=== PATIENT | female | born 1930 | race Caucasian/White ===

== ENCOUNTER 2019-08-17 18:57 | Inpatient (IN) ==
[2019-08-17] MEDS ORDERED: hydrALAZINE 20 MG/1 ML VIAL IV PRN (20:59)
[2019-08-17] MEDS ORDERED: ZALEPLON 5 MG CAPSULE PO PRN (21:01)
[2019-08-17] MEDS ORDERED: ACETAMINOPHEN 325 MG TABLET PO PRN (21:01)
[2019-08-17] MEDS ORDERED: MORPHINE 4 MG/1 ML VIAL IV PRN (21:01)
[2019-08-17] MEDS ORDERED: guaiFENesin/DM ER 600-30 MG TABLET PO PRN (21:01)
[2019-08-17] MEDS ORDERED: ONDANSETRON 4 MG/2 ML VIAL IV PRN (21:01)
[2019-08-17] MEDS ORDERED: DILTIAZEM 50 MG/10 ML VIAL IV ONE (21:36)
[2019-08-17 22:20] LABS: Calcium 8.8 MG/DL (8.5-10.1); Osmolality,Calculated 282.3 MOS/KG (273-304)
[2019-08-17 22:42] LABS: Basophils % 0.9 % (0.0-0.8); Eosinophils # 0.1 10*3/uL (0.0-0.87); Hematocrit 23.5 VOL% (35.7-47.0); Hemoglobin 6.6 GM/DL (12.0-16.0); Immature Granulocytes % 0.4 %; Immature Granulocytes Absolute 0.02 #; Lymphocytes # 0.9 10*3/uL (1.4-4.0); Lymphocytes % 19.7 % (21.3-54.2); Mean Corpuscular HGB Conc 28.1 GM/DL (32-36); Mean Corpuscular Volume 64.9 FL (87-102); Mean Platelet Volume 9.9 FL (9.6-12.0); Monocytes % 12.6 % (1.7-12.7); NRBC # 0.02 10*3/uL; Neutrophils % 64.4 % (38.7-73.9); Platelet Count 330 T/CUMM (130-400); Red Blood Count 3.62 MC/CUMM (3.8-5.5); Red Cell Distribution Width 18.6 % (9.3-17.3); White Blood Count 4.5 T/CUMM (4-12)
[2019-08-17 22:52] LABS: Folate 6.1 NG/ML (5.4-24.0); Vitamin B12 551 PG/ML (211-911)
[2019-08-17] MEDS ORDERED: FUROSEMIDE 40 MG/4 ML VIAL IV ONE (23:00)
[2019-08-17] MEDS ORDERED: SODIUM CHLORIDE 0.9% 1,000 ML IV PRN (23:07)
[2019-08-17] MEDS: METOPROLOL TARTRATE 25 MG TABLET PO SCH (23:34)
[2019-08-17] MEDS: cefTRIAXone 1,000 MG in SYRINGE 1 EACH IV SCH (23:35)
[2019-08-17] MEDS: AZITHROMYCIN INJ 500 MG in SODIUM CHLORIDE 0.9% 250 ML IV SCH (23:53)
[2019-08-17 23:54] LABS: Sedimentation Rate-Westergren 25 MM/HR (0-30)
[2019-08-18] MEDS ORDERED: METOPROLOL TARTRATE 5 MG/5 ML VIAL IV SCH
[2019-08-18 08:18] LABS: Basophils % 0.5 % (0.0-0.8); Eosinophils # 0.1 10*3/uL (0.0-0.87); Eosinophils % 1.2 % (0.00-10.9); Hematocrit 30.9 VOL% (35.7-47.0); Immature Granulocytes % 0.3 %; Immature Granulocytes Absolute 0.02 #; Lymphocytes # 0.7 10*3/uL (1.4-4.0); Lymphocytes % 11.9 % (21.3-54.2); Mean Corpuscular HGB Conc 29.8 GM/DL (32-36); Mean Corpuscular Volume 71.4 FL (87-102); Mean Platelet Volume 9.1 FL (9.6-12.0); Monocytes % 9.6 % (1.7-12.7); Neutrophils % 76.5 % (38.7-73.9); Platelet Count 271 T/CUMM (130-400); Red Blood Count 4.33 MC/CUMM (3.8-5.5); Red Cell Distribution Width 22.9 % (9.3-17.3); White Blood Count 5.7 T/CUMM (4-12)
[2019-08-18 08:24] LABS: Hemoglobin 9.2 GM/DL (12.0-16.0)
[2019-08-18 08:49] LABS: Hypochromasia 1+
[2019-08-18 08:50] LABS: Platelet Estimate Adequate
[2019-08-18 08:53] LABS: Calcium 8.8 MG/DL (8.5-10.1); Osmolality,Calculated 278.5 MOS/KG (273-304)
[2019-08-18] MEDS: PANTOPRAZOLE 40 MG TABLET PO SCH (09:16)
[2019-08-18] MEDS: METOPROLOL TARTRATE 25 MG TABLET PO SCH ×2 (09:16→20:00)
[2019-08-18] MEDS: FUROSEMIDE 40 MG/4 ML VIAL IV SCH ×2 (09:16→15:25)
[2019-08-18] MEDS: LACTULOSE 20 GM/30 ML UDCUP PO PRN (09:19)
[2019-08-18 10:10] LABS: % Iron Saturation 19.7 % (18-50); Ferritin 19.5 ng/ml (8-252)
[2019-08-18] MEDS: POTASSIUM CHLORIDE 20 MEQ TABLET PO PRN ×4 (13:16→23:06)
[2019-08-18] MEDS: FERROUS SULFATE 325 MG TABLET PO SCH ×2 (13:17→20:01)
[2019-08-18] MEDS: AZITHROMYCIN INJ 500 MG in SODIUM CHLORIDE 0.9% 250 ML IV SCH (23:05)
[2019-08-18] MEDS: cefTRIAXone 1,000 MG in SYRINGE 1 EACH IV SCH (23:06)
[2019-08-19] MEDS ORDERED: ZIPRASIDONE 20 MG/1 ML VIAL IM PRN (00:58)
[2019-08-19 07:33] LABS: Basophils % 0.7 % (0.0-0.8); Eosinophils # 0.1 10*3/uL (0.0-0.87); Eosinophils % 1.5 % (0.00-10.9); Hematocrit 32.8 VOL% (35.7-47.0); Hemoglobin 9.7 GM/DL (12.0-16.0); Immature Granulocytes % 0.3 %; Immature Granulocytes Absolute 0.02 #; Lymphocytes # 0.8 10*3/uL (1.4-4.0); Lymphocytes % 12.2 % (21.3-54.2); Mean Corpuscular HGB Conc 29.6 GM/DL (32-36); Mean Corpuscular Volume 72.1 FL (87-102); Mean Platelet Volume 9.8 FL (9.6-12.0); Monocytes % 14.7 % (1.7-12.7); Neutrophils % 70.6 % (38.7-73.9); Platelet Count 287 T/CUMM (130-400); Red Blood Count 4.55 MC/CUMM (3.8-5.5); Red Cell Distribution Width 23.4 % (9.3-17.3); White Blood Count 6.1 T/CUMM (4-12)
[2019-08-19 07:51] LABS: Hypochromasia 2+; Platelet Estimate Adequate
[2019-08-19 07:55] LABS: Osmolality,Calculated 281.3 MOS/KG (273-304)
[2019-08-19] MEDS: METOPROLOL TARTRATE 25 MG TABLET PO SCH ×2 (08:47→21:56)
[2019-08-19] MEDS: PANTOPRAZOLE 40 MG TABLET PO SCH (08:47)
[2019-08-19] MEDS: FUROSEMIDE 40 MG/4 ML VIAL IV SCH (08:47)
[2019-08-19] MEDS: FERROUS SULFATE 325 MG TABLET PO SCH ×2 (08:47→21:55)
[2019-08-19 09:30] LABS: Hemoglobin A1 (Alkaline) 97.3 % (96.5-98.5); Hemoglobin A2 (Alkaline) 2.7 % (1.5-3.5)
[2019-08-19] MEDS ORDERED: TUBERCULIN SKIN TEST 0.1 ML SYRINGE INTRADERM ONE (12:29)
[2019-08-20] MEDS: cefTRIAXone 1,000 MG in SYRINGE 1 EACH IV SCH (01:00)
[2019-08-20] MEDS: AZITHROMYCIN INJ 500 MG in SODIUM CHLORIDE 0.9% 250 ML IV SCH (01:21)
[2019-08-20 04:43] LABS: Basophils # 0.1 10*3/uL (0.0-0.2); Basophils % 0.8 % (0.0-0.8); Eosinophils # 0.2 10*3/uL (0.0-0.87); Eosinophils % 2.4 % (0.00-10.9); Hematocrit 31.9 VOL% (35.7-47.0); Hemoglobin 9.3 GM/DL (12.0-16.0); Immature Granulocytes % 0.3 %; Immature Granulocytes Absolute 0.02 #; Lymphocytes % 15.7 % (21.3-54.2); Mean Corpuscular HGB Conc 29.2 GM/DL (32-36); Mean Corpuscular Volume 71.8 FL (87-102); Mean Platelet Volume 9.7 FL (9.6-12.0); Neutrophils % 68.8 % (38.7-73.9); Platelet Count 272 T/CUMM (130-400); Red Blood Count 4.44 MC/CUMM (3.8-5.5); Red Cell Distribution Width 24.6 % (9.3-17.3); White Blood Count 6.3 T/CUMM (4-12)
[2019-08-20 05:10] LABS: Hypochromasia 1+; Ovalocytes Slight; Platelet Estimate Adequate
[2019-08-20] MEDS: FUROSEMIDE 40 MG/4 ML VIAL IV SCH ×2 (08:54→16:02)
[2019-08-20] MEDS: FERROUS SULFATE 325 MG TABLET PO SCH ×2 (08:55→22:43)
[2019-08-20] MEDS: PANTOPRAZOLE 40 MG TABLET PO SCH (08:55)
[2019-08-20] MEDS: METOPROLOL TARTRATE 25 MG TABLET PO SCH ×2 (08:55→22:43)
[2019-08-21] MEDS: cefTRIAXone 1,000 MG in SYRINGE 1 EACH IV SCH (00:08)
[2019-08-21] MEDS: AZITHROMYCIN INJ 500 MG in SODIUM CHLORIDE 0.9% 250 ML IV SCH (00:30)
[2019-08-21] MEDS: METOPROLOL TARTRATE 25 MG TABLET PO SCH ×2 (09:20→20:27)
[2019-08-21] MEDS: PANTOPRAZOLE 40 MG TABLET PO SCH (09:25)
[2019-08-21] MEDS: FERROUS SULFATE 325 MG TABLET PO SCH ×2 (09:25→20:27)
[2019-08-21] MEDS: FUROSEMIDE 40 MG/4 ML VIAL IV SCH (09:25)
[2019-08-21 11:00] LABS: Calcium 8.7 MG/DL (8.5-10.1); Osmolality,Calculated 277.5 MOS/KG (273-304)
[2019-08-22 05:12] LABS: Calcium 8.9 MG/DL (8.5-10.1); Osmolality,Calculated 281.3 MOS/KG (273-304)
[2019-08-22 06:00] LABS: Basophils # 0.1 10*3/uL (0.0-0.2); Eosinophils # 0.2 10*3/uL (0.0-0.87); Eosinophils % 3.6 % (0.00-10.9); Immature Granulocytes % 0.6 %; Immature Granulocytes Absolute 0.03 #; Lymphocytes % 20.1 % (21.3-54.2); Mean Corpuscular HGB Conc 29.1 GM/DL (32-36); Mean Corpuscular Volume 74.6 FL (87-102); Mean Platelet Volume 10.3 FL (9.6-12.0); Monocytes % 12.6 % (1.7-12.7); Neutrophils % 62.1 % (38.7-73.9); Platelet Count 266 T/CUMM (130-400); Red Blood Count 4.29 MC/CUMM (3.8-5.5); Red Cell Distribution Width 26.2 % (9.3-17.3); White Blood Count 4.8 T/CUMM (4-12)
[2019-08-22 06:01] LABS: Hemoglobin 9.3 GM/DL (12.0-16.0)
[2019-08-22 06:07] LABS: Elliptocytes 1+; Hypochromasia 2+; Ovalocytes 1+; Platelet Estimate Normal; Poikilocytosis 1+; Target Cells Few
[2019-08-22 06:08] LABS: Anisocytosis 1+; Microcytosis 1+; Tear Drop Cells Few
[2019-08-22] MEDS: METOPROLOL TARTRATE 25 MG TABLET PO SCH ×2 (08:37→21:42)
[2019-08-22] MEDS: FERROUS SULFATE 325 MG TABLET PO SCH ×2 (08:37→21:43)
[2019-08-22] MEDS: PANTOPRAZOLE 40 MG TABLET PO SCH (08:37)
[2019-08-23 06:17] LABS: Basophils % 0.8 % (0.0-0.8); Eosinophils # 0.1 10*3/uL (0.0-0.87); Eosinophils % 2.3 % (0.00-10.9); Hematocrit 30.4 VOL% (35.7-47.0); Hemoglobin 8.8 GM/DL (12.0-16.0); Immature Granulocytes % 0.4 %; Immature Granulocytes Absolute 0.02 #; Lymphocytes # 0.9 10*3/uL (1.4-4.0); Lymphocytes % 18.4 % (21.3-54.2); Mean Corpuscular HGB Conc 28.9 GM/DL (32-36); Mean Corpuscular Volume 74.3 FL (87-102); Mean Platelet Volume 10.5 FL (9.6-12.0); Monocytes % 12.1 % (1.7-12.7); Platelet Count 242 T/CUMM (130-400); Red Blood Count 4.09 MC/CUMM (3.8-5.5); Red Cell Distribution Width 26.5 % (9.3-17.3); White Blood Count 4.8 T/CUMM (4-12)
[2019-08-23 06:42] LABS: Calcium 8.9 MG/DL (8.5-10.1); Osmolality,Calculated 283.1 MOS/KG (273-304)
[2019-08-23 07:31] LABS: Hypochromasia 2+
[2019-08-23 07:32] LABS: Microcytosis 2+; Ovalocytes Few; Spherocytes Slight
[2019-08-23 07:33] LABS: Platelet Estimate Normal
[2019-08-23] MEDS: PANTOPRAZOLE 40 MG TABLET PO SCH (08:33)
[2019-08-23] MEDS: FERROUS SULFATE 325 MG TABLET PO SCH (08:33)
[2019-08-23] MEDS: METOPROLOL TARTRATE 25 MG TABLET PO SCH (08:33)
[2019-08-23] MEDS: LACTULOSE 20 GM/30 ML UDCUP PO PRN (08:38)
[2019-08-23 12:28] VITALS: BP 125/61
== END 2019-08-23 14:18 | DRG 812 ==
LOC: N.TELES 20:05 → SUATTDRO 20:05
PROVIDERS: ADMIT Internal Medicine; ATTEND Internal Medicine

== ENCOUNTER 2020-05-18 15:38 | Inpatient (IN) ==
[2020-05-18] MEDS ORDERED: SODIUM CHLORIDE 0.9% 1,000 ML IV STA (16:27)
[2020-05-18 17:03] LABS: Basophils % 0.1 % (0.0-0.8); Eosinophils % 0.2 % (0.00-10.9); Hematocrit 32.7 VOL% (35.7-47.0); Immature Granulocytes % 0.8 %; Immature Granulocytes Absolute 0.12 #; Lymphocytes # 0.8 10*3/uL (1.4-4.0); Lymphocytes % 5.2 % (21.3-54.2); Mean Corpuscular HGB Conc 30.6 GM/DL (32-36); Mean Platelet Volume 10.9 FL (9.6-12.0); Monocytes % 8.6 % (1.7-12.7); Neutrophils % 85.1 % (38.7-73.9); Platelet Count 412 T/CUMM (130-400); Red Blood Count 4.09 MC/CUMM (3.8-5.5); Red Cell Distribution Width 18.5 % (9.3-17.3); White Blood Count 14.5 T/CUMM (4-12)
[2020-05-18 17:23] LABS: Albumin 2.4 G/DL (3.4-5.0); Bilirubin,Total 0.8 MG/DL (0.2-1.0); Calcium 10.1 MG/DL (8.5-10.1); Osmolality,Calculated 326.4 MOS/KG (273-304); Total Protein 6.2 G/DL (6.4-8.3)
[2020-05-18 17:24] LABS: Troponin I < 0.015 NG/ML (0.00-0.045)
[2020-05-18 17:39] LABS: INR 1.2; Partial Thromboplastin Time 25.7 SECS (23.9-33.8)
[2020-05-18 18:14] LABS: Apearance,Urine CLOUDY (Clear); Bacteria,Urine Occasional /HPF (Few); Bilirubin,Urine Negative (Negative); Blood, Urine Negative (Negative); Glucose,Urine (UA) Negative (Negative); Hyaline Casts,Urine 21 /LPF (0-3); Ketones,Urine Negative (Negative); Mucus,Urine Occasional /LPF (Occasional); Nitrite,Urine Negative (Negative); Protein,Urine 30 MG/DL; Squamous Epithelial Cell,Urine Occasional /HPF (0-10); Urine Color Yellow (Yellow); Urine Specific Gravity 1.017 (1.001-1.035); Urine Urobilinogen < 2.0 EU/DL (0.2-1.0); WBC,Urine 1 /HPF (0-6)
[2020-05-18] MEDS ORDERED: GLUCAGON 1 MG VIAL IM PRN (18:36)
[2020-05-18] MEDS ORDERED: DEXTROSE 50% 25 GM/50 ML VIAL IV PRN (18:36)
[2020-05-18] MEDS ORDERED: ENOXAPARIN 30 MG/0.3 ML SYRINGE SUBCUT SCH (21:00)
[2020-05-18] MEDS: FERROUS SULFATE 325 MG TABLET PO SCH (22:25)
[2020-05-18] MEDS: GABAPENTIN 100 MG CAPSULE PO SCH (22:25)
[2020-05-18] MEDS: DEXTROSE 5% 1,000 ML IV SCH (22:25)
[2020-05-18] MEDS: METOPROLOL TARTRATE 25 MG TABLET PO SCH (22:25)
[2020-05-19 04:41] LABS: Basophils % 0.2 % (0.0-0.8); Eosinophils # 0.1 10*3/uL (0.0-0.87); Eosinophils % 0.8 % (0.00-10.9); Hemoglobin 9.4 GM/DL (12.0-16.0); Immature Granulocytes % 0.8 %; Immature Granulocytes Absolute 0.09 #; Lymphocytes # 0.9 10*3/uL (1.4-4.0); Lymphocytes % 7.2 % (21.3-54.2); Mean Corpuscular HGB Conc 30.3 GM/DL (32-36); Mean Corpuscular Volume 79.5 FL (87-102); Mean Platelet Volume 10.5 FL (9.6-12.0); Monocytes % 8.6 % (1.7-12.7); Neutrophils % 82.4 % (38.7-73.9); Platelet Count 368 T/CUMM (130-400); Red Cell Distribution Width 18.2 % (9.3-17.3); White Blood Count 11.9 T/CUMM (4-12)
[2020-05-19 05:18] LABS: Albumin 2.1 G/DL (3.4-5.0); Bilirubin,Total 0.7 MG/DL (0.2-1.0); Calcium 10.2 MG/DL (8.5-10.1); Osmolality,Calculated 318.1 MOS/KG (273-304); Risk Ratio 15.19; Total Protein 6.6 G/DL (6.4-8.3); VLDL CHOLESTEROL 39.4 MG/DL
[2020-05-19] MEDS: POTASSIUM CHLORIDE RIDER 10 MEQ in PREMIX 1 EACH IV PRN ×5 (05:35→12:18)
[2020-05-19] MEDS: DEXTROSE 5% 1,000 ML IV SCH ×4 (07:12→18:02)
[2020-05-19] MEDS: METOPROLOL TARTRATE 25 MG TABLET PO SCH ×2 (10:12→21:52)
[2020-05-19] MEDS: POLYETHYLENE GLYCOL POWDER 17 GM PACK PO SCH (10:12)
[2020-05-19] MEDS: FERROUS SULFATE 325 MG TABLET PO SCH ×2 (10:12→21:52)
[2020-05-19] MEDS: PANTOPRAZOLE 40 MG TABLET PO SCH (10:13)
[2020-05-19] MEDS: GABAPENTIN 100 MG CAPSULE PO SCH ×3 (10:13→21:53)
[2020-05-19] MEDS: ASPIRIN EC 81 MG TABLET PO SCH (15:19)
[2020-05-19] MEDS ORDERED: ENOXAPARIN 60 MG/0.6 ML SYRINGE SUBCUT SCH (18:00)
[2020-05-19] MEDS: ATORVASTATIN 40 MG TABLET PO SCH (21:52)
[2020-05-19] MEDS: ENOXAPARIN 30 MG/0.3 ML SYRINGE SUBCUT SCH (21:52)
[2020-05-20] MEDS: DEXTROSE 5% 1,000 ML IV SCH ×3 (04:33→20:59)
[2020-05-20 06:12] LABS: Basophils % 0.2 % (0.0-0.8); Eosinophils # 0.1 10*3/uL (0.0-0.87); Eosinophils % 0.9 % (0.00-10.9); Hematocrit 31.1 VOL% (35.7-47.0); Hemoglobin 9.4 GM/DL (12.0-16.0); Immature Granulocytes % 0.7 %; Immature Granulocytes Absolute 0.08 #; Lymphocytes % 8.5 % (21.3-54.2); Mean Corpuscular HGB Conc 30.2 GM/DL (32-36); Mean Corpuscular Volume 79.7 FL (87-102); Monocytes % 8.3 % (1.7-12.7); Neutrophils % 81.4 % (38.7-73.9); Platelet Count 365 T/CUMM (130-400); Red Cell Distribution Width 18.4 % (9.3-17.3); White Blood Count 11.2 T/CUMM (4-12)
[2020-05-20 06:35] LABS: Osmolality,Calculated 304.1 MOS/KG (273-304)
[2020-05-20] MEDS: FERROUS SULFATE 325 MG TABLET PO SCH ×2 (09:49→21:32)
[2020-05-20] MEDS: ASPIRIN EC 81 MG TABLET PO SCH (09:49)
[2020-05-20] MEDS: METOPROLOL TARTRATE 25 MG TABLET PO SCH ×2 (09:49→21:32)
[2020-05-20] MEDS: PANTOPRAZOLE 40 MG TABLET PO SCH (09:50)
[2020-05-20] MEDS: POLYETHYLENE GLYCOL POWDER 17 GM PACK PO SCH (09:50)
[2020-05-20] MEDS: GABAPENTIN 100 MG CAPSULE PO SCH ×3 (09:50→21:32)
[2020-05-20] MEDS: ENOXAPARIN 30 MG/0.3 ML SYRINGE SUBCUT SCH (09:55)
[2020-05-20] MEDS: POTASSIUM CHLORIDE RIDER 10 MEQ in PREMIX 1 EACH IV PRN ×2 (12:49→14:22)
[2020-05-20] MEDS: ATORVASTATIN 40 MG TABLET PO SCH (21:32)
[2020-05-21 05:39] LABS: Basophils % 0.2 % (0.0-0.8); Eosinophils % 0.3 % (0.00-10.9); Hematocrit 33.5 VOL% (35.7-47.0); Hemoglobin 10.3 GM/DL (12.0-16.0); Immature Granulocytes % 1.3 %; Lymphocytes # 1.1 10*3/uL (1.4-4.0); Lymphocytes % 7.2 % (21.3-54.2); Mean Corpuscular HGB Conc 30.7 GM/DL (32-36); Mean Platelet Volume 10.7 FL (9.6-12.0); Monocytes % 8.8 % (1.7-12.7); Neutrophils % 82.2 % (38.7-73.9); Platelet Count 341 T/CUMM (130-400); Red Blood Count 4.24 MC/CUMM (3.8-5.5); Red Cell Distribution Width 18.3 % (9.3-17.3); White Blood Count 15.6 T/CUMM (4-12)
[2020-05-21] MEDS: DEXTROSE 5% 1,000 ML IV SCH (05:52)
[2020-05-21 06:04] LABS: Calcium 9.9 MG/DL (8.5-10.1); Osmolality,Calculated 282.5 MOS/KG (273-304)
[2020-05-21] MEDS: ASPIRIN EC 81 MG TABLET PO SCH (09:55)
[2020-05-21] MEDS: FERROUS SULFATE 325 MG TABLET PO SCH ×2 (09:55→20:30)
[2020-05-21] MEDS: POLYETHYLENE GLYCOL POWDER 17 GM PACK PO SCH (09:56)
[2020-05-21] MEDS: METOPROLOL TARTRATE 25 MG TABLET PO SCH ×2 (09:56→20:30)
[2020-05-21] MEDS: PANTOPRAZOLE 40 MG TABLET PO SCH (09:56)
[2020-05-21] MEDS: GABAPENTIN 100 MG CAPSULE PO SCH ×3 (09:56→20:30)
[2020-05-21] MEDS ORDERED: cefTRIAXone 1,000 MG in SYRINGE 1 EACH IV SCH (10:00)
[2020-05-21] MEDS ORDERED: AZITHROMYCIN INJ 500 MG in SODIUM CHLORIDE 0.9% 250 ML IV SCH (10:30)
[2020-05-21 10:40] LABS: Apearance,Urine CLOUDY (Clear); Bacteria,Urine Moderate /HPF (Few); Bilirubin,Urine Negative (Negative); Blood, Urine Negative (Negative); Glucose,Urine (UA) Negative (Negative); Ketones,Urine Negative (Negative); Mucus,Urine Occasional /LPF (Occasional); Nitrite,Urine Negative (Negative); Protein,Urine Negative; RBC,Urine 2 /HPF (0-4); Squamous Epithelial Cell,Urine Occasional /HPF (0-10); Uric Acid Crystals,Urine Occasional /HPF (<1); Urine Color Yellow (Yellow); Urine Specific Gravity 1.013 (1.001-1.035); Urine Urobilinogen < 2.0 EU/DL (0.2-1.0); WBC,Urine 1 /HPF (0-6)
[2020-05-21] MEDS: SODIUM CHLORIDE 0.9% 1,000 ML IV SCH ×2 (11:03→22:23)
[2020-05-21] MEDS ORDERED: MORPHINE 4 MG/1 ML VIAL IV ONE (15:34)
[2020-05-21] MEDS: ATORVASTATIN 40 MG TABLET PO SCH (20:30)
[2020-05-22] MEDS ORDERED: METOPROLOL TARTRATE 5 MG/5 ML VIAL IV ONE (03:07)
[2020-05-22] MEDS ORDERED: SODIUM CHLORIDE 0.9% 250 ML IV ONE (03:09)
[2020-05-22] MEDS ORDERED: ceFAZolin 1,000 MG in SYRINGE 1 EACH IV ONE (06:00)
[2020-05-22] MEDS: SODIUM CHLORIDE 0.9% 1,000 ML IV SCH ×2 (06:08→21:41)
[2020-05-22 07:01] LABS: Basophils % 0.2 % (0.0-0.8); Eosinophils % 0.1 % (0.00-10.9); Hematocrit 29.2 VOL% (35.7-47.0); Hemoglobin 9.1 GM/DL (12.0-16.0); Immature Granulocytes % 1.2 %; Immature Granulocytes Absolute 0.21 #; Lymphocytes # 0.7 10*3/uL (1.4-4.0); Lymphocytes % 3.8 % (21.3-54.2); Mean Corpuscular HGB Conc 31.2 GM/DL (32-36); Mean Corpuscular Volume 77.7 FL (87-102); Monocytes % 8.4 % (1.7-12.7); Neutrophils % 86.3 % (38.7-73.9); Platelet Count 281 T/CUMM (130-400); Red Blood Count 3.76 MC/CUMM (3.8-5.5); Red Cell Distribution Width 18.3 % (9.3-17.3)
[2020-05-22 07:17] LABS: Osmolality,Calculated 280.4 MOS/KG (273-304)
[2020-05-22 07:29] LABS: Band Neutrophils 4 % (0-10); Lymphocytes 7 % (20-55); Platelet Estimate Normal; Segmented Neutrophils 80 % (50-85); Total Cells Counted 100
[2020-05-22 07:30] LABS: Acanthocytes Few; Hypochromasia 2+; Ovalocytes Few
[2020-05-22] MEDS: LACTATED RINGERS 1,000 ML IV SCH (08:00)
[2020-05-22] MEDS ORDERED: propofoL 200 MG/20 ML VIAL IV ONE ×2 (09:00)
[2020-05-22] MEDS ORDERED: LIDOCAINE 2% 5 ML VIAL ONE ×2 (09:00)
[2020-05-22] MEDS: POLYETHYLENE GLYCOL POWDER 17 GM PACK PO SCH (10:40)
[2020-05-22] MEDS: FERROUS SULFATE 325 MG TABLET PO SCH ×2 (10:40→21:26)
[2020-05-22] MEDS: METOPROLOL TARTRATE 25 MG TABLET PO SCH (10:40)
[2020-05-22] MEDS: GABAPENTIN 100 MG CAPSULE PO SCH ×3 (10:40→21:26)
[2020-05-22] MEDS: ASPIRIN EC 81 MG TABLET PO SCH (10:40)
[2020-05-22] MEDS: PANTOPRAZOLE 40 MG TABLET PO SCH (10:41)
[2020-05-22] MEDS: PIPERACILLIN/TAZOBACTAM 3,375 MG in SODIUM CHLORIDE 0.9% 100 ML IV SCH ×2 (11:24→21:25)
[2020-05-22] MEDS ORDERED: SODIUM PHOSPHATE INJ 30 MMOL in SODIUM CHLORIDE 0.9% 250 ML IV ONE (14:48)
[2020-05-22] MEDS: FAT EMULSION 20% 250 ML IV SCH (16:52)
[2020-05-22] MEDS ORDERED: DEXTROSE 10% 1,000 ML IV PRN (17:00)
[2020-05-22] MEDS: MULTIVITAMIN INJ 10 ML, TRACE ELEMENTS (5) 1 ML in AMINO ACIDS/DEXT/LYTES 4.25-5% 2,000 ML IV SCH (17:10)
[2020-05-22] MEDS: PANTOPRAZOLE 40 MG VIAL IV SCH (21:22)
[2020-05-22] MEDS: ENOXAPARIN 30 MG/0.3 ML SYRINGE SUBCUT SCH (21:25)
[2020-05-22] MEDS: ATORVASTATIN 40 MG TABLET PO SCH (21:26)
[2020-05-23] MEDS: PIPERACILLIN/TAZOBACTAM 3,375 MG in SODIUM CHLORIDE 0.9% 100 ML IV SCH ×3 (01:14→17:59)
[2020-05-23 06:15] LABS: Calcium 8.3 MG/DL (8.5-10.1); Osmolality,Calculated 290.8 MOS/KG (273-304)
[2020-05-23 07:32] LABS: Basophils % 0.1 % (0.0-0.8); Eosinophils % 0.2 % (0.00-10.9); Hematocrit 28.3 VOL% (35.7-47.0); Hemoglobin 8.9 GM/DL (12.0-16.0); Immature Granulocytes % 1.3 %; Immature Granulocytes Absolute 0.18 #; Lymphocytes # 0.6 10*3/uL (1.4-4.0); Lymphocytes % 4.3 % (21.3-54.2); Mean Corpuscular HGB Conc 31.4 GM/DL (32-36); Mean Corpuscular Volume 76.5 FL (87-102); Mean Platelet Volume 10.9 FL (9.6-12.0); Monocytes % 8.5 % (1.7-12.7); Neutrophils % 85.6 % (38.7-73.9); Platelet Count 355 T/CUMM (130-400); Red Cell Distribution Width 18.2 % (9.3-17.3); White Blood Count 14.3 T/CUMM (4-12)
[2020-05-23 07:50] LABS: Eosinophils 1 % (0-10); Hypochromasia 1+; Lymphocytes 4 % (20-55); Ovalocytes Slight; Platelet Estimate Adequate; Segmented Neutrophils 89 % (50-85); Total Cells Counted 100
[2020-05-23] MEDS: PANTOPRAZOLE 40 MG VIAL IV SCH ×2 (08:47→22:03)
[2020-05-23] MEDS: ENOXAPARIN 30 MG/0.3 ML SYRINGE SUBCUT SCH ×2 (08:48→22:02)
[2020-05-23] MEDS: MORPHINE 4 MG/1 ML VIAL IV PRN ×2 (09:21→17:48)
[2020-05-23] MEDS: FERROUS SULFATE 325 MG TABLET PO SCH ×2 (09:39→22:02)
[2020-05-23] MEDS: POLYETHYLENE GLYCOL POWDER 17 GM PACK PO SCH (09:39)
[2020-05-23] MEDS: GABAPENTIN 100 MG CAPSULE PO SCH ×3 (09:39→22:02)
[2020-05-23] MEDS: FAT EMULSION 20% 250 ML IV SCH (13:48)
[2020-05-23] MEDS: LACTATED RINGERS 1,000 ML IV SCH (19:29)
[2020-05-23] MEDS: SODIUM CHLORIDE 0.9% 1,000 ML IV SCH (19:29)
[2020-05-23] MEDS: ATORVASTATIN 40 MG TABLET PO SCH (22:02)
[2020-05-24] MEDS: MULTIVITAMIN INJ 10 ML, TRACE ELEMENTS (5) 1 ML in AMINO ACIDS/DEXT/LYTES 4.25-5% 2,000 ML IV SCH (00:11)
[2020-05-24] MEDS: PIPERACILLIN/TAZOBACTAM 3,375 MG in SODIUM CHLORIDE 0.9% 100 ML IV SCH ×3 (03:05→18:38)
[2020-05-24 04:55] LABS: Basophils % 0.1 % (0.0-0.8); Eosinophils % 0.1 % (0.00-10.9); Hematocrit 27.2 VOL% (35.7-47.0); Hemoglobin 8.6 GM/DL (12.0-16.0); Immature Granulocytes % 1.2 %; Immature Granulocytes Absolute 0.16 #; Lymphocytes # 0.7 10*3/uL (1.4-4.0); Mean Corpuscular HGB Conc 31.6 GM/DL (32-36); Mean Corpuscular Volume 75.6 FL (87-102); Mean Platelet Volume 11.7 FL (9.6-12.0); Monocytes % 8.6 % (1.7-12.7); Platelet Count 383 T/CUMM (130-400); Red Cell Distribution Width 18.1 % (9.3-17.3); White Blood Count 13.8 T/CUMM (4-12)
[2020-05-24 05:17] LABS: Calcium 8.7 MG/DL (8.5-10.1)
[2020-05-24] MEDS ORDERED: VANCOMYCIN INJ 1,000 MG in SODIUM CHLORIDE 0.9% 250 ML IV PRN (09:56)
[2020-05-24] MEDS ORDERED: VANCOMYCIN INJ 1,000 MG in SODIUM CHLORIDE 0.9% 250 ML IV ONE (10:00)
[2020-05-24] MEDS: PANTOPRAZOLE 40 MG VIAL IV SCH ×2 (10:18→21:53)
[2020-05-24] MEDS: GABAPENTIN 100 MG CAPSULE PO SCH ×3 (10:19→21:51)
[2020-05-24] MEDS: ENOXAPARIN 30 MG/0.3 ML SYRINGE SUBCUT SCH (10:19)
[2020-05-24] MEDS: FERROUS SULFATE 325 MG TABLET PO SCH ×2 (10:19→21:51)
[2020-05-24] MEDS: POLYETHYLENE GLYCOL POWDER 17 GM PACK PO SCH (10:19)
[2020-05-24] MEDS: ASPIRIN 300 MG SUPP RECTAL SCH (10:19)
[2020-05-24] MEDS: FAT EMULSION 20% 250 ML IV SCH (16:02)
[2020-05-24] MEDS: MORPHINE 4 MG/1 ML VIAL IV PRN (17:43)
[2020-05-24] MEDS: LACTATED RINGERS 1,000 ML IV SCH (20:30)
[2020-05-24] MEDS: ATORVASTATIN 40 MG TABLET PO SCH (21:51)
[2020-05-25] MEDS: PIPERACILLIN/TAZOBACTAM 3,375 MG in SODIUM CHLORIDE 0.9% 100 ML IV SCH ×3 (02:46→17:42)
[2020-05-25] MEDS: MORPHINE 4 MG/1 ML VIAL IV PRN ×2 (03:03→21:33)
[2020-05-25 05:15] LABS: Basophils % 0.1 % (0.0-0.8); Eosinophils # 0.1 10*3/uL (0.0-0.87); Eosinophils % 0.4 % (0.00-10.9); Hematocrit 26.3 VOL% (35.7-47.0); Hemoglobin 8.4 GM/DL (12.0-16.0); Immature Granulocytes % 1.3 %; Immature Granulocytes Absolute 0.18 #; Lymphocytes # 0.8 10*3/uL (1.4-4.0); Lymphocytes % 5.7 % (21.3-54.2); Mean Corpuscular HGB Conc 31.9 GM/DL (32-36); Mean Corpuscular Volume 74.9 FL (87-102); Monocytes % 8.4 % (1.7-12.7); Neutrophils % 84.1 % (38.7-73.9); Platelet Count 422 T/CUMM (130-400); Red Blood Count 3.51 MC/CUMM (3.8-5.5); Red Cell Distribution Width 18.3 % (9.3-17.3); White Blood Count 13.6 T/CUMM (4-12)
[2020-05-25 05:31] LABS: Osmolality,Calculated 296.7 MOS/KG (273-304)
[2020-05-25] MEDS: MULTIVITAMIN INJ 10 ML, TRACE ELEMENTS (5) 1 ML in AMINO ACIDS/DEXT/LYTES 4.25-5% 2,000 ML IV SCH ×2 (08:50→16:51)
[2020-05-25] MEDS: SODIUM CHLORIDE 0.9% 1,000 ML IV SCH ×2 (08:54→09:02)
[2020-05-25] MEDS: PANTOPRAZOLE 40 MG VIAL IV SCH ×2 (09:05→21:28)
[2020-05-25] MEDS: ASPIRIN 300 MG SUPP RECTAL SCH (09:09)
[2020-05-25] MEDS: POLYETHYLENE GLYCOL POWDER 17 GM PACK PO SCH (09:09)
[2020-05-25] MEDS: GABAPENTIN 100 MG CAPSULE PO SCH ×3 (09:09→21:31)
[2020-05-25] MEDS: FERROUS SULFATE 325 MG TABLET PO SCH ×2 (09:09→21:31)
[2020-05-25] MEDS: FAT EMULSION 20% 250 ML IV SCH (13:47)
[2020-05-25] MEDS: LACTATED RINGERS 1,000 ML IV SCH (16:47)
[2020-05-25] MEDS: VANCOMYCIN INJ 1,000 MG in SODIUM CHLORIDE 0.9% 250 ML IV SCH (21:30)
[2020-05-25] MEDS: ATORVASTATIN 40 MG TABLET PO SCH (21:31)
[2020-05-26] MEDS: SODIUM CHLORIDE 0.9% 1,000 ML IV SCH ×2 (00:10→10:27)
[2020-05-26] MEDS: PIPERACILLIN/TAZOBACTAM 3,375 MG in SODIUM CHLORIDE 0.9% 100 ML IV SCH ×3 (01:20→17:51)
[2020-05-26] MEDS: FERROUS SULFATE 325 MG TABLET PO SCH ×2 (09:02→21:20)
[2020-05-26] MEDS: ASPIRIN 300 MG SUPP RECTAL SCH (09:02)
[2020-05-26] MEDS: POLYETHYLENE GLYCOL POWDER 17 GM PACK PO SCH (09:03)
[2020-05-26] MEDS: GABAPENTIN 100 MG CAPSULE PO SCH ×3 (09:03→21:20)
[2020-05-26] MEDS: PANTOPRAZOLE 40 MG VIAL IV SCH ×2 (10:23→21:15)
[2020-05-26] MEDS: MORPHINE 4 MG/1 ML VIAL IV PRN ×2 (10:24→21:35)
[2020-05-26] MEDS: FAT EMULSION 20% 250 ML IV SCH (13:41)
[2020-05-26] MEDS: MULTIVITAMIN INJ 10 ML, TRACE ELEMENTS (5) 1 ML in AMINO ACIDS/DEXT/LYTES 4.25-5% 2,000 ML IV SCH (17:03)
[2020-05-26] MEDS: LACTATED RINGERS 1,000 ML IV SCH (18:36)
[2020-05-26] MEDS: ATORVASTATIN 40 MG TABLET PO SCH (21:20)
[2020-05-27] MEDS: PIPERACILLIN/TAZOBACTAM 3,375 MG in SODIUM CHLORIDE 0.9% 100 ML IV SCH ×3 (02:20→18:14)
[2020-05-27] MEDS: SODIUM CHLORIDE 0.9% 1,000 ML IV SCH ×2 (02:20→21:45)
[2020-05-27 05:31] LABS: Basophils # 0.1 10*3/uL (0.0-0.2); Basophils % 0.4 % (0.0-0.8); Eosinophils # 0.1 10*3/uL (0.0-0.87); Eosinophils % 0.7 % (0.00-10.9); Hematocrit 27.7 VOL% (35.7-47.0); Hemoglobin 8.7 GM/DL (12.0-16.0); Immature Granulocytes % 1.8 %; Immature Granulocytes Absolute 0.24 #; Lymphocytes # 0.6 10*3/uL (1.4-4.0); Lymphocytes % 4.8 % (21.3-54.2); Mean Corpuscular HGB Conc 31.4 GM/DL (32-36); Mean Corpuscular Volume 76.5 FL (87-102); Monocytes % 7.8 % (1.7-12.7); Neutrophils % 84.5 % (38.7-73.9); Platelet Count 419 T/CUMM (130-400); Red Blood Count 3.62 MC/CUMM (3.8-5.5); Red Cell Distribution Width 18.6 % (9.3-17.3); White Blood Count 13.5 T/CUMM (4-12)
[2020-05-27 05:50] LABS: Calcium 9.1 MG/DL (8.5-10.1); Osmolality,Calculated 297.1 MOS/KG (273-304)
[2020-05-27 05:56] LABS: Anisocytosis 2+; Elliptocytes Few; Lymphocytes 5 % (20-55); Microcytosis 2+; Ovalocytes 1+; Platelet Estimate Increased; Segmented Neutrophils 90 % (50-85); Total Cells Counted 100
[2020-05-27] MEDS: PANTOPRAZOLE 40 MG VIAL IV SCH ×2 (09:08→20:55)
[2020-05-27] MEDS: LACTATED RINGERS 1,000 ML IV SCH (09:34)
[2020-05-27] MEDS: POLYETHYLENE GLYCOL POWDER 17 GM PACK PO SCH (09:35)
[2020-05-27] MEDS: GABAPENTIN 100 MG CAPSULE PO SCH ×3 (09:35→21:46)
[2020-05-27] MEDS: ASPIRIN 300 MG SUPP RECTAL SCH (09:35)
[2020-05-27] MEDS: FERROUS SULFATE 325 MG TABLET PO SCH ×2 (09:35→21:45)
[2020-05-27] MEDS: FAT EMULSION 20% 250 ML IV SCH (14:51)
[2020-05-27] MEDS: MULTIVITAMIN INJ 10 ML, TRACE ELEMENTS (5) 1 ML in AMINO ACIDS/DEXT/LYTES 4.25-5% 2,000 ML IV SCH (17:38)
[2020-05-27] MEDS: MORPHINE 4 MG/1 ML VIAL IV PRN ×2 (17:39→22:20)
[2020-05-27] MEDS: VANCOMYCIN INJ 1,000 MG in SODIUM CHLORIDE 0.9% 250 ML IV SCH (20:55)
[2020-05-27] MEDS: ATORVASTATIN 40 MG TABLET PO SCH (21:46)
[2020-05-28] MEDS: PIPERACILLIN/TAZOBACTAM 3,375 MG in SODIUM CHLORIDE 0.9% 100 ML IV SCH ×2 (01:25→09:44)
[2020-05-28 06:35] LABS: Basophils % 0.2 % (0.0-0.8); Eosinophils # 0.1 10*3/uL (0.0-0.87); Eosinophils % 0.7 % (0.00-10.9); Hematocrit 23.9 VOL% (35.7-47.0); Hemoglobin 7.7 GM/DL (12.0-16.0); Immature Granulocytes Absolute 0.26 #; Lymphocytes # 0.8 10*3/uL (1.4-4.0); Lymphocytes % 6.2 % (21.3-54.2); Mean Corpuscular HGB Conc 32.2 GM/DL (32-36); Mean Corpuscular Volume 75.9 FL (87-102); Monocytes % 7.6 % (1.7-12.7); NRBC # 0.02 10*3/uL; Neutrophils % 83.3 % (38.7-73.9); Platelet Count 451 T/CUMM (130-400); Red Blood Count 3.15 MC/CUMM (3.8-5.5); Red Cell Distribution Width 18.6 % (9.3-17.3); White Blood Count 12.8 T/CUMM (4-12)
[2020-05-28 06:49] LABS: Calcium 9.1 MG/DL (8.5-10.1); Osmolality,Calculated 299.4 MOS/KG (273-304)
[2020-05-28 06:51] LABS: Calcium 9.1 MG/DL (8.5-10.1); Osmolality,Calculated 302.3 MOS/KG (273-304)
[2020-05-28] MEDS: PANTOPRAZOLE 40 MG VIAL IV SCH (08:47)
[2020-05-28] MEDS: LACTATED RINGERS 1,000 ML IV SCH (09:10)
[2020-05-28] MEDS: FERROUS SULFATE 325 MG TABLET PO SCH (09:15)
[2020-05-28] MEDS: ASPIRIN 300 MG SUPP RECTAL SCH (09:15)
[2020-05-28] MEDS: GABAPENTIN 100 MG CAPSULE PO SCH ×2 (09:15→16:02)
[2020-05-28] MEDS: POLYETHYLENE GLYCOL POWDER 17 GM PACK PO SCH (09:15)
[2020-05-28] MEDS: FAT EMULSION 20% 250 ML IV SCH (16:02)
[2020-05-28] MEDS: SODIUM CHLORIDE 0.9% 1,000 ML IV SCH (16:03)
[2020-05-28 16:29] VITALS: BP 110/61
[2020-05-28] MEDS: MULTIVITAMIN INJ 10 ML, TRACE ELEMENTS (5) 1 ML in AMINO ACIDS/DEXT/LYTES 4.25-5% 2,000 ML IV SCH (18:38)
== END 2020-05-28 19:05 | disposition hospice, inpatient (51) | DRG 64 ==
LOC: EDBD → EDUNIT# → N.ED 15:38 → N.EDINP 18:36 → N.TELEN 20:12
PROVIDERS: ADMIT Internal Medicine; ATTEND Internal Medicine